=== PATIENT | female | born 1975 | race Caucasian/White ===

== ENCOUNTER 2018-07-05 13:43 | Emergency (ER) | payer OTHER ==
[~2018-07-05] VITALS: Ht 160 cm; Wt 72.6 kg
[~2018-07-05 13:43] MED LIST: ALLEGRA ALLERG180 MG PO; GILTUSS TR TAB1 EACH PO; MECLIZINE HCL25 MG PO
== END 2018-07-05 20:40 | disposition home or self-care (01) ==
LOC: ER 13:43
DX: R10.9 Unspecified abdominal pain (principal)

== ENCOUNTER 2018-11-09 07:54 | Outpatient (CLI) | payer OTHER | END 2018-11-09 08:17 | disposition home or self-care (01) | LOC: MAMO-SONO 07:54 | DX: N92.1 Excessive and frequent menstruation with irregular cycle (principal); N64.4 Mastodynia; Z12.31 Encounter for screening mammogram for malignant neoplasm of breast ==

== ENCOUNTER 2019-03-14 09:29 | Outpatient (CLI) | payer OTHER | END 2019-03-14 09:35 | disposition home or self-care (01) | LOC: LAB 09:29 | DX: N20.0 Calculus of kidney (principal); R97.1 Elevated cancer antigen 125 [CA 125]; R97.0 Elevated carcinoembryonic antigen [CEA]; R79.82 Elevated C-reactive protein (CRP); A49.3 Mycoplasma infection, unspecified site; R50.9 Fever, unspecified ==

== ENCOUNTER 2019-03-17 09:20 | Outpatient (CLI) | payer OTHER | END 2019-03-17 09:35 | disposition home or self-care (01) | LOC: MRI 09:20 | DX: N83.291 Other ovarian cyst, right side (principal); N92.1 Excessive and frequent menstruation with irregular cycle | CPT/HCPCS: 72196 ==

== ENCOUNTER → 2019-04-17 07:57 | Outpatient (CLI) | payer OTHER | END | disposition home or self-care (01) | LOC: LAB 07:57 | DX: D50.0 Iron deficiency anemia secondary to blood loss (chronic) (principal); N91.1 Secondary amenorrhea; R73.01 Impaired fasting glucose; D68.318 Other hemorrhagic disorder due to intrinsic circulating anticoagulants, antibodies, or inhibitors; R30.0 Dysuria; Z01.810 Encounter for preprocedural cardiovascular examination ==

== ENCOUNTER 2022-04-16 09:10 | Outpatient (CLI) | payer OTHER | END 2022-04-16 09:42 | disposition home or self-care (01) | LOC: MAMO-SONO 09:10 | PROVIDERS: ATTEND Obstetrics & Gynecology | DX: Z12.31 Encounter for screening mammogram for malignant neoplasm of breast (principal); N64.4 Mastodynia; N92.1 Excessive and frequent menstruation with irregular cycle ==

== ENCOUNTER 2022-04-16 11:55 | Outpatient (CLI) | payer OTHER | END 2022-04-16 11:56 | disposition home or self-care (01) | LOC: LAB 11:55 | PROVIDERS: ATTEND Obstetrics & Gynecology | DX: E03.8 Other specified hypothyroidism (principal); N92.1 Excessive and frequent menstruation with irregular cycle ==